=== PATIENT | female | born 1955 | race Caucasian/White ===

== ENCOUNTER → 2016-04-13 | Outpatient (CLI) | payer BC ==
[2016-04-13 09:54] LABS: BLOOD UREA NITROGEN 17 mg/dL (7-22); CREATININE 0.7 mg/dL (0.50-1.20); EST GLOMERULAR FILTRATION > 60 (>60 ml/min/1.73m(2))
== END ==
LOC: MRI 08:45 → LAB 08:45
PROVIDERS: ATTEND Neurological Surgery
DX: Z01.812 Encounter for preprocedural laboratory examination (principal); G54.1 Lumbosacral plexus disorders
CPT/HCPCS: 82565; 84520

== ENCOUNTER → 2016-04-13 | Outpatient (CLI) | payer BC ==
--- NOTE | 2016-04-13 14:00 | DI ---
MRI PELVIS W/WO CN,04/13/2016 8:51 AM: Clinical History: Abnormal EMG. Previous Exam: MRI lumbar spine performed October 29, 2014 Findings: Multiplanar MR images are obtained through the pelvis before and after the intravenous administration of 18 mL of MultiHance gadolinium contrast, and demonstrate normal marrow signal throughout the bony structures. There are minimal degenerative changes of the lumbar facets. The urinary bladder is unremarkable. The hip joints are within normal limits. . 4 minus is normal and symmetric bilaterally. The sacral plexus demonstrates normal, symmetric signal. There is no enhancing lesion. The nerve root s are well seen on this exam. There is no evidence of hip joint effusion. Impression: The sacral plexus and major lumbar nerve roots are within normal limits. There is no evidence of piriformis syndrome.
== END ==
LOC: MRI 09:38
PROVIDERS: ATTEND Neurological Surgery
DX: G54.1 Lumbosacral plexus disorders (principal)
CPT/HCPCS: 72197; 73720; A9579

== ENCOUNTER 2016-08-21 11:12 | Emergency (ER) | payer BC ==
[2016-08-21 12:27] VITALS: RESP 16
--- NOTE | 2016-08-21 13:05 | DI ---
XR L-SPINE 2-3 VW,08/21/2016 11:30 AM: Clinical History: Low back pain Previous Exam: October 15, 2014 Findings: AP and lateral views of the lumbar spine are obtained, and demonstrate anatomic alignment without fra ctures. Vertebral body height is preserved. The prevertebral soft tissues are unremarkable except for vascular calcifications. Impression: Normal lumbar spine. Unchanged from the prior exam
--- NOTE | 2016-08-22 01:47 | PDOC ---
Back Pain / Injury HPI - General Chief Complaint: Neck / Back Complaint Stated Complaint: lower back pain Date Seen by Provider: 08/21/16 Time Seen by Provider: 11:18 Source: Patient Exam Limitations: POSITIVE: No limitations Nurse's Notes Reviewed & Considered: Yes - History of Present Illness Initial Comments: The patient is a 60-year-old female. She states that yesterday afternoon around 1600 she was bending over to leaf size picker some leaves. When she straightened up she states that she "heard something pop"and she experienced the abrupt onset of pain in her lower back. Patient states that she has a history of chronic sciatica and has had a history of low back pain intermittently for 40 years. She states she takes oxycodone 5/325 for her sciatic pain. She sees Dr. Araujo for her chronic back pain and she receives "shots in my back"by Dr. Lorenz in [place]. She is also on trazodone and gabapentin and potassium supplements. History of COPD and hypertension. She's had a hysterectomy. Body Location Affected: REPORTS: Back Timing: REPORTS: Abrupt Duration: <24 hours Severity: Moderate Quality: REPORTS: "Pain" Context: REPORTS: Bending Modifying Factors: improves with: Movement (Movement exacerbates pain.) Associated Symptoms: REPORTS: Back pain Similar Symptoms Previously: Yes (as above; history of chronic recurring low back pain and sciatica) Recent Care Received: REPORTS: Recently Seen, Treated by MD (As above) Any Prior Injuries Related to Current Complaint?: No - Patient Home Medications Home Medications: Home Medications Cpap 1 unit INH BEDTIME #1 unit 07/28/13 Fluoxetine HCl 1 cap PO DAILY #90 cap 09/21/15 Hydrochlorothiazide 1 tab ORAL QD #90 tab 09/21/15 Pantoprazole Sodium [Protonix] 1 tab PO QHS #90 tab 09/21/15 Potassium Chloride 1 tab-cap PO QD #90 tab 09/21/15 Tramadol HCl 1 tab PO QID PRN #120 tab 09/21/15 Gabapentin [Neurontin] 1 cap PO ASDIR #100 cap 05/03/16 Oxycodone HCl/Acetaminophen [Percocet 5-325 Mg Tablet] 1 tab PO Q4H #100 tab 12/24 Trazodone HCl 1 tab PO QHS #30 tab 07/28/16 Cyclobenzaprine HCl [Flexeril] 10 mg PO Q8H #21 tab 08/21/16 Fluticasone/Salmeterol [Advair 100-50 Diskus] 1 puff INH DAILY 08/21/16 Tiotropium Inhalation Cap [Spiriva Inhalation Cap] 1 puff INH DAILY 08/21/16 - Patient Allergies Allergies/Adverse Reactions: Allergies Allergy/AdvReac Type Severity Reaction Status Date / Time blue dye Allergy Intermediate ITCHING Verified 08/21/16 11:22 Past Medical History - heen HEENT History: Denies History Cardiovascular History: Hypertension, Hyperlipidemia Respiratory History: COPD Gastrointestinal History: GERD Genitourinary History: Denies History Endocrine History: Denies History Musculoskeletal History: Back Pain Neurological History: Denies History Blood Disorders: Denies History Psychiatric History: Depression History of Sexually Transmitted Diseases: No Female Reproductive History: Hysterectomy Obstetrical History: Denies History Cancer History: Denies History In Past Year Been Physically Harmed or Verbally Threatened: No History of MDRO: No Tobacco Use: Former Smoker Alcohol Use: Occasionally Substance Use Type: None Previous Surgical History: Yes Type / Date of Surgery: TOTAL HYST. TONSILS Significant Family History: No pertinent family hx Past Medical History Reviewed: Reviewed - No Changes ROS - Limitations ROS Limitations: No Limitations Constitution: REPORTS: Denies Symptoms Cardiovascular: REPORTS: Denies Cardiac Symptoms Respiratory: REPORTS: Denies Resp Symptoms Neurological: REPORTS: Denies Neuro Symptoms Gastrointestinal: REPORTS: Denies GI Symptoms Endocrine: REPORTS: Denies Symptoms Musculoskeletal: REPORTS: Back Pain (As above) Genitourinary: REPORTS: Denies Symptoms Eyes: REPORTS: Denies Symptoms ENT: REPORTS: Denies Symptoms Skin: REPORTS: Denies Skin Symptoms Lympathic: REPORTS: Denies Lympathic Symptoms Immunologic: POSITIVE: Denies Symptoms Psychiatric: POSITIVE: Denies Psych Symptoms Back Physical Assessment - General Appearance General Appearance: REPORTS: Alert, Cooperative, No Acute Distress, No Evidence of Trauma - HEENT HEENT: POSITIVE: Head Inspection Nml, Eyes Inspection Nml, Ears Inspection Nml, Nose Inspection Nml, Oral/Dental Inspect. Nml, Pharynx Inspect. Nml, PERRL, EOMI - Neck Neck: POSITIVE: Non Tender, Painless ROM, Trachea Midline, Nexus Criteria Negative - Respiratory / CVS Respiratory / CVS: POSITIVE: Chest Non Tender, No Ecchymosis, Breath Sounds Normal, No Respiratory Distress, Heart Sounds Normal, Regular Rate/Rhythm - Abdomen Abdomen: Soft: (All Quadrants), Normal Bowel Sounds: (All Quadrants), Denies Tenderness: (All Quadrants), No Splenomegaly: (All Quadrants), No Hepatomegaly: (All Quadrants), No Guarding: (All Quadrants), No Rebound: (All Quadrants), No Palpable Pulse: (All Quadrants), No Palpabale Mass: (All Quadrants), No Distention: (All Quadrants), No Rigidity: (All Quadrants) - Back Back: REPORTS: No CVA Tenderness, No Vertebral Tenderness, Muscle Spasm ( Paralumbar musculature), Limited ROM, See Diagram. DENIES: Non Tender, Painless ROM, Vertebral Pt. 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 - Patient's Progress Pain Medication Addressed: POSITIVE: Yes (Patient is already on gabapentin trazodone and oxycodone. Recommended augmenting this with Aleve or Advil) School/Work Release Addressed: POSITIVE: Yes (Work excuse given) Re-Examine Time: 12:20 Status: POSITIVE: Unchanged, Re-Examined - Consult Counseled: POSITIVE: Patient, RE: Radiology Results, RE: DX, RE: Need for F/U Patient Care Time - Estimated PCT Patient Care Time (In Minutes): 30 Vital Signs - Recent Vital Signs Vital Signs: Blood pressure 113/69, heart rate 87, respiratory rate 16, oxygen saturation on room air is 93% - VS Reviewed Vital Signs Reviewed: Yes Discharge Clinical Impression: Sciatica, Lumbar strain Discharge Disposition: Discharged to Home Condition: Good Prescriptions / Orders: Cyclobenzaprine HCl [Flexeril] 10 mg PO Q8H #21 tab Patient Instructions Given at Discharge: Low Back Strain (ED) Additional Instructions: Rest for 24-48 hours. Warm moist compresses to lower back. Flexeril one every 8 hours. Aleve or Advil. Follow-up with your primary care provider or neurosurgeon. Return here anytime if condition worsens. Follow Up With: JIM BILLINGSLEY [Primary Care Provider] - (Instructions as above. Follow-up with your primary care provider and neurosurgeon. Return here anytime if condition worsens.)
== END 2016-08-21 12:33 | disposition home or self-care (01) ==
LOC: ER 11:12
DX: S39.012A Strain of muscle, fascia and tendon of lower back, initial encounter (principal); M54.42 Lumbago with sciatica, left side; M54.41 Lumbago with sciatica, right side; J44.9 Chronic obstructive pulmonary disease, unspecified; I10 Essential (primary) hypertension; M54.5 Low back pain
CPT/HCPCS: 72100; 99282; 99283